=== PATIENT | female | born 1955 | race Caucasian/White ===

== ENCOUNTER 2017-09-21 00:07 | Emergency (ER) | payer BC ==
[~2017-09-21 00:07] MED LIST: Ketorolac 30 MG/ML SDV ONE
--- NOTE | 2017-09-21 00:13 | EDM.PDOC ---
ED HPI GENERAL MEDICAL PROBLEM - General Stated Complaint: [facility] Time Seen by Provider: 09/21/17 00:07 Source of Information: Reports: Patient, EMS History Limitations: Reports: No Limitations - History of Present Illness INITIAL COMMENTS - FREE TEXT/NARRATIVE: 62-year-old female who had some moderate back pain earlier today, it resolved until 6 PM tonight when he came back suddenly and very intensely. Her pain is in the left flank, left lower abdomen radiating around to the back. She can't get comfortable and she has nausea and vomiting. She was given 100 g of fentanyl IV by EMS in route. Only a small amount of relief. No specific urinary symptoms. No fever or chest pain. Onset: Sudden Duration: Hour(s): (6 hours ago) Location: Reports: Abdomen (Left lower quadrant), Back (Left flank) Severity: Severe Associated Symptoms: Reports: Nausea/Vomiting. 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) (Received fentanyl from the EMS crew) left flank pain Pain Score (Numeric/FACES): 10 - Related Data Allergies Allergy/AdvReac Type Severity Reaction Status Date / Time latex Allergy Rash Verified 09/21/17 00:14 simvastatin AdvReac Abdominal Verified 09/21/17 00:14 Pain Home Meds: Home Meds Aspirin [Abiola Chewable] 81 mg PO DAILY 04/10/13 [History] Cholecalciferol (Vitamin D3) [Vitamin D] 2,000 units PO DAILY 11/16/13 [History] [place]-3 Fatty Acids [[place]-3] 1,000 mg PO DAILY 11/16/13 [History] ALPRAZolam [Xanax] 0.5 mg PO ASDIRECTED PRN 08/18/15 [History] Albuterol Sulfate [Proair Hfa] 1 puff INH Q4HR PRN 08/18/15 [History] PARoxetine [Paxil] 10 mg PO DAILY 08/18/15 [History] atorvaSTATin [Lipitor] 40 mg PO DAILY 08/18/15 [History] Past Medical History HEENT History: Reports: Allergic Rhinitis Cardiovascular History: Reports: High Cholesterol Respiratory History: Reports: Asthma, SOB Gastrointestinal History: Reports: None Genitourinary History: Reports: None POLITICAL ADVISOR History: Reports: Musculoskeletal History: Reports: None Psychiatric History: Reports: Anxiety Dermatologic History: Reports: Other (See Below) Other Dermatologic History: skin rashes at times - Past Surgical History HEENT Surgical History: Reports: LASIK, Oral Surgery Female Surgical History: Reports: Section Social & Family History - Living Situation & Occupation Living situation: Reports: , with Spouse ED ROS GENERAL - Review of Systems Review Of Systems: See Below Constitutional: Reports: Malaise. Denies: Fever, Chills HEENT: Reports: No Symptoms Respiratory: Denies: Shortness of Breath Cardiovascular: Denies: Chest Pain GI/Abdominal: Reports: Abdominal Pain, Nausea, Vomiting. Denies: Diarrhea, Decreased Appetite : Reports: Flank Pain. Denies: Dysuria, Frequency Musculoskeletal: Reports: Back Pain Skin: Reports: No Symptoms Neurological: Reports: No Symptoms Psychiatric: Reports: No Symptoms ED EXAM, GENERAL - Physical Exam Exam: See Below Exam Limited By: No Limitations General Appearance: Alert, Moderate Distress Respiratory/Chest: No Respiratory Distress, Lungs Clear GI/Abdominal: Soft, Non-Tender Neurological: Alert, Oriented Psychiatric: Anxious Skin Exam: Warm, Dry Course - Vital Signs Last Recorded V/S: Last Vital Signs Temp 97.0 F 09/21/17 00:20 Pulse 74 09/21/17 00:20 Resp 26 H 09/21/17 00:20 BP 164/91 H 09/21/17 00:20 Pulse Ox 100 09/21/17 00:20 - Orders/Labs/Meds Orders: Active Orders 24 hr Category Date Time Status Abdomen Pelvis wo Cont [CT] Stat Exams 09/21/17 00:10 Taken UA W/MICROSCOPIC [URIN] Urgent Lab 09/21/17 00:47 Ordered Labs: Laboratory Tests 09/21/17 Range/Units 00:47 Urine Color Yellow Urine Appearance Clear Urine pH 8.0 (4.5-8.0) Ur Specific [place] 1.015 (1.008-1.030) Urine Protein Negative (NEGATIVE) mg/dL Urine Glucose (UA) Normal (NEGATIVE) mg/dL Urine Ketones Negative (NEGATIVE) mg/dL Urine Occult Blood Negative (NEGATIVE) Urine Nitrite Negative (NEGATIVE) Urine Bilirubin Negative (NEGATIVE) Urine Urobilinogen Normal (NORMAL) mg/dL Ur Leukocyte Esterase Moderate (NEGATIVE) Urine RBC 0-5 (0-5) Urine WBC 5-10 H (0-5) Ur Epithelial Cells Rare Amorphous Sediment Not seen Urine Bacteria Few Urine Mucus Not seen Meds: Medications Discontinued Medications Generic Name Dose Route Start Last Admin Trade Name Jc PRN Reason Stop Dose Admin Ketorolac Tromethamine 30 mg 09/21/17 00:58 09/21/17 01:18 Toradol IVPUSH 09/21/17 00:59 30 mg ONETIME ONE Administration Ketorolac Tromethamine Confirm 09/21/17 00:01 Toradol Administered 09/21/17 00:02 Dose 30 mg .ROUTE .STK-MED ONE - Re-Assessments/Exams Free Text/Narrative Re-Assessment/Exam: 09/21/17 00:13 30 mg of IV Toradol was given and the patient and she was sent back for an abdomen and pelvis CT without contrast. 09/21/17 01:50 CT showed left perinephric stranding and hydronephrosis but no obstructive lesions and otherwise normal ureter. She seemed to respond well to the Toradol. A UA does not show significant inflammatory findings. Patient was given an additional 20 doses of Toradol to take up to 3 times daily if pain recurs, but may want to consider a urology consultation due to the CT findings. She can return to ER if worsening and not responding to the pain medication. Departure - Departure Time of Disposition: 02:04 Disposition: Home, Self-Care 01 Condition: Good Clinical Impression: Ureteric colic - Discharge Information Instructions: Renal Colic, [id number] Referrals: PCP,None [Primary Care Provider] - Forms: ED Department Discharge Care Plan Goals: Use pain medication every 6-8 hours over the next several days. Return if worsening despite medication, and consider a urology consultation regarding CT findings if symptoms are persistent or recurring. - My Orders Last 24 Hours: My Active Orders 09/21/17 00:10 Abdomen Pelvis wo Cont [CT] Stat 09/21/17 00:47 UA W/MICROSCOPIC [URIN] Urgent - Assessment/Plan Last 24 Hours: My Active Orders 09/21/17 00:10 Abdomen Pelvis wo Cont [CT] Stat 09/21/17 00:47 UA W/MICROSCOPIC [URIN] Urgent
[2017-09-21 00:15] VITALS: BP 164/91
[2017-09-21] MEDS ORDERED: Ketorolac 30 MG/ML SDV IVPUSH ONE (00:58)
== END 2017-09-21 02:04 | disposition home or self-care (01) ==
LOC: JP.ED 00:07
DX: N13.2 Hydronephrosis with renal and ureteral calculous obstruction (principal); E78.00 Pure hypercholesterolemia, unspecified; J45.909 Unspecified asthma, uncomplicated; Z91.040 Latex allergy status; Z88.8 Allergy status to other drugs, medicaments and biological substances; Z79.82 Long term (current) use of aspirin; Z79.899 Other long term (current) drug therapy
CPT/HCPCS: 74176; 81001; 96374; 99284; J1885

== ENCOUNTER 2022-01-01 06:55 | Day surgery (SDC) | payer MEDICARE, BC ==
[~2022-01-01 06:55] MED LIST changes: -Ketorolac 30 MG/ML SDV ONE; +Midazolam 1 MG/ML 2 ML SDV ONE; +Propofol 200 MG/20 ML SDV ONE; +fentaNYL 100 MCG/2 ML SDV ONE
[2022-01-01] MEDS ORDERED: Lactated Ringers 1,000 ML IV SCH (07:30)
[2022-01-01 09:50] VITALS: BP 132/83; PULSE 73
== END 2022-01-01 09:53 | disposition home or self-care (01) ==
LOC: JP.SDS 06:55
PROVIDERS: ATTEND Family Medicine
DX: Z12.11 Encounter for screening for malignant neoplasm of colon (principal); K64.8 Other hemorrhoids; Z91.040 Latex allergy status
CPT/HCPCS: G0121; J2250; J2704; J3010; J7120

== ENCOUNTER 2022-05-21 07:43 | Day surgery (SDC) | payer MEDICARE, BC ==
[~2022-05-21 07:43] MED LIST changes: +Bupivacaine 0.5% 50 ML MDV ONE; +Lidocaine 1% with EPINEPHrine 1:100,000 50 ML MDV ONE
[2022-05-21] MEDS ORDERED: Acetaminophen 500 MG Tab PO ONE (07:45)
[2022-05-21] MEDS ORDERED: ceFAZolin 1 GM in Premix Bag 1 BAG IV ONE (08:45)
[2022-05-21] MEDS ORDERED: Dextrose 5%-Lactated Ringers 1,000 ML IV SCH (08:45)
[2022-05-21] MEDS ORDERED: Albuterol/Ipratropium 3.0-0.5 MG/3 ML Neb Soln NEB ONE (08:45)
[2022-05-21] MEDS ORDERED: Bacitracin Oint 1 GM U/D Packet ONE (11:48)
[2022-05-21 13:08] VITALS: BP 132/77; PULSE 79
== END 2022-05-21 13:21 | disposition home or self-care (01) ==
LOC: JP.SDS 07:43
PROVIDERS: ATTEND Surgery
DX: L08.89 Other specified local infections of the skin and subcutaneous tissue (principal); Z85.828 Personal history of other malignant neoplasm of skin
CPT/HCPCS: 11443; 12052; 88304; 94640; A9270; J2250; J2704; J3010; J3490; J7121; J7620

== ENCOUNTER 2024-06-28 09:47 | Emergency (ER) | payer MEDICARE, BC ==
[2024-06-28 10:03] VITALS: BP 138/105; PULSE 78
== END 2024-06-28 11:49 | disposition home or self-care (01) ==
LOC: JP.ED 09:47
DX: I10 Essential (primary) hypertension (principal); H53.8 Other visual disturbances; R51.9 Headache, unspecified; E78.00 Pure hypercholesterolemia, unspecified; J45.909 Unspecified asthma, uncomplicated; Z91.040 Latex allergy status; Z91.010 Allergy to peanuts; Z88.8 Allergy status to other drugs, medicaments and biological substances; Z79.82 Long term (current) use of aspirin; Z79.899 Other long term (current) drug therapy
CPT/HCPCS: 70450; 70450-26; 99284